=== PATIENT | female | born 1945 | race Caucasian/White ===

== ENCOUNTER 2017-07-26 07:32 | Emergency (ER) | payer MEDICARE, OTHER ==
[~2017-07-26] VITALS: Ht 157.5 cm; Wt 67.0 kg
[~2017-07-26 07:32] MED LIST: AMLO-145; ASPI81TA3; LISI20TA; METO-335; MEVA40
[2017-07-26 07:35] VITALS: Ht 157.5 cm; Wt 67.0 kg
[2017-07-26 08:20] VITALS: BP 138/78; PULSE 73; RESP 18; TEMP 98.1
--- NOTE | 2017-07-26 08:40 | ERD ---
ER Documentation Chief Complaint Chief Complaint Pt with painful urination since yesterday, today blood in urine. HPI 71-year-old female presents emergency department for dysuria and hematuria. Patient states she has had dysuria since yesterday and developed hematuria today. No vaginal bleeding or vaginal discharge. No passage of blood clots. No fevers or chills. No abdominal pain, vomiting, diarrhea or constipation. Patient states she has had 3 UTIs recently and states this feels exactly the same as her previous UTIs. ROS All systems reviewed and are negative except as per history of present illness. Medications Home Meds Active Scripts Cephalexin* (Keflex*) 500 Mg Capsule, 500 MG PO BID for 7 Days, CAP Prov:TIBURCIO PAYTON NP 07/26/17 Phenazopyridine Hcl* (Pyridium*) 100 Mg Tab, 100 MG PO TID for 2 Days, TAB Prov:TIBURCIO APYTON NP 07/26/17 Reported Medications Amlodipine Besylate* (Amlodipine Besylate*) 5 Mg Tablet 03/20/13 Lovastatin (Lovastatin) 40 Mg Tablet 03/20/13 Metoprolol Succinate* (Toprol XL*) 25 Mg Tab.sr.24h 03/20/13 Lisinopril* (Prinivil*) 20 Mg Tablet 03/20/13 Aspirin (Aspirin) 81 Mg Chew 03/20/13 Discontinued Scripts Nitrofurantoin Monohyd Macrocr (Macrobid) 100 Mg Capsr, 100 MG PO BID for 5 Days , CAP Prov:TIBURCIO PAYTON NP 07/26/17 Allergies Allergies: Coded Allergies: Penicillins (Verified Allergy, Unknown, 03/20/13) PMhx/Soc History of Surgery: Yes (ABDOMINAL SURGERY; LEFT KNEE REPLACEMENT;BLADDER SURGERY) Anesthesia Reaction: No Hx Neurological Disorder: No Hx Respiratory Disorders: No Hx Cardiac Disorders: Yes (HTN; HIGH CHOLESTEROL) Hx Psychiatric Problems: No Hx Miscellaneous Medical Probl: No Hx Alcohol Use: No Hx Substance Use: No Hx Tobacco Use: No Physical Exam Vitals Vital Signs Date Time Temp Pulse Resp B/P Pulse Ox O2 Delivery O2 Flow Rate FiO2 07/26/17 08:20 98.1 73 18 138/78 17 Room Air 07/26/17 07:35 98.1 84 18 189/91 98 Physical Exam Const: no acute distress, alert Head: Atraumatic Eyes: Normal Conjunctiva ENT: Normal External Ears, Nose and Mouth. Neck: Full range of motion..~ No meningismus. Resp: Clear to auscultation bilaterally. no wheezing, rhonchi or crackles Cardio: Regular rate and rhythm, no murmurs Abd: Soft, non tender, non distended. Normal bowel sounds Skin: No petechiae or rashes Back: No midline or flank tenderness. No CVA tenderness. Ext: No cyanosis, or edema Neur: Awake and alert Psych: Normal Mood and Affect Results 24 hrs Laboratory Tests Test 07/26/17 08:23 Urine Color DOMINGO Urine Clarity CLOUDY Urine pH 6.0 Urine Specific [place] 1.012 Urine Ketones NEGATIVEmg/dL Urine Nitrite NEGATIVEmg/dL Urine Bilirubin NEGATIVEmg/dL Urine Urobilinogen NEGATIVEmg/dL Urine Leukocyte Esterase 2+Dharmesh/ul Urine Microscopic RBC > 182/HPF Urine Microscopic WBC > 182/HPF Urine Bacteria FEW/HPF Urine Hemoglobin 2+mg/dL Urine Glucose NEGATIVEmg/dL Urine Total Protein 2+mg/dl Procedures/MDM MDM: 71 year old female presents to ER for dysuria and hematuria. Patient is afebrile. Blood pressure is 189/91 mm Hg upon arrival to ED. Patient states she took her lisinopril at home about 30 minutes prior to arrival to ED. Upon recheck, patient's blood pressure has reduced. UA shows Patient denies abdominal pain, vomiting or diarrhea. No constipation. No chest pain, shortness breath or difficulty breathing. She states her symptoms feel exactly the same as her previous UTI. UA shows 2+ leukocyte esterase, greater than 182 white blood cells and greater than 182 RBCs. Vital signs are stable. Patient likely has UTI. Low suspicion for nephrolithiasis or pyelonephritis. Patient is appropriate for outpatient management will be given prescription for Keflex and Pyridium. Instructed patient to follow-up with primary care provider in the next 2-3 days for reassessment and additional management. Return to ED for any high fever, chest pain, difficulty breathing, shortness breath, wheezing, vomiting, diarrhea, abdominal pain or any new or worsening symptoms. Patient verbalizes understanding. All questions answered at discharge. Disclaimer: Inadvertent spelling and grammatical errors are likely due to EHR/ dictation software use and do not reflect on the overall quality of patient care. Also, please note that the electronic time recorded on this note does not necessarily reflect the actual time of the patient encounter. Departure Diagnosis: Primary Impression: UTI (urinary tract infection) Urinary tract infection type: acute cystitis Hematuria presence: with hematuria Qualified Code: N30.01 - Acute cystitis with hematuria Condition: TIBURCIO Smith NP Jul 26, 2017 08:40
[2017-07-26 09:30] LABS: ADD UMIC YES; UR ASCORBIC ACID NEGATIVE (NEGATIVE); UR BACTERIA FEW /HPF (NONE SEEN); UR BILIRUBIN (Dip) NEGATIVE (NEGATIVE); UR BLOOD (Dip) 2+ mg/dL (NEGATIVE); UR CLARITY CLOUDY (CLEAR); UR COLOR AMBER (YELLOW); UR GLUCOSE (Dip) NEGATIVE (NEGATIVE); UR KETONES (Dip) NEGATIVE (NEGATIVE); UR LEUKOCYTE ESTERASE (Dip) 2+ Leu/ul (NEGATIVE); UR NITRITE (Dip) NEGATIVE (NEGATIVE); UR RBC > 182 /HPF (0-5); UR SPECIFIC GRAVITY (Dip) 1.012 (1.003-1.030); UR TOTAL PROTEIN (Dip) 2+ mg/dl (NEGATIVE); UR UROBILINOGEN (Dip) NEGATIVE (NEGATIVE)
[2017-07-26] MEDS ORDERED: PHEN-537 PO (09:39)
[2017-07-26] MEDS ORDERED: NITR-58 PO (09:39)
[2017-07-26] MEDS ORDERED: CEPH-443 PO (09:42)
== END 2017-07-26 10:29 | disposition home or self-care (01) ==
LOC: FTE 07:32
DX: N30.01 Acute cystitis with hematuria (principal); I10 Essential (primary) hypertension; Z79.82 Long term (current) use of aspirin; Z96.652 Presence of left artificial knee joint
CPT/HCPCS: 81001; 99283

== ENCOUNTER 2018-10-06 14:40 | Emergency (ER) | payer MEDICARE, OTHER ==
[~2018-10-06] VITALS: Ht 157.5 cm; Wt 68.5 kg
[~2018-10-06 14:40] MED LIST changes: +ACET325T33 PO; +ASPI-831; -ASPI81TA3; +BACL10TA PO; +CEPH-443 PO; +IBUP-1561 PO; +PHEN-537 PO
[2018-10-06 15:45] VITALS: BP 141/77; PULSE 78; RESP 19; Ht 157.5 cm; Wt 68.5 kg
--- NOTE | 2018-10-06 17:41 | ERD ---
ER Documentation Chief Complaint Chief Complaint RT WRIST PAIN GROUND LEVEL FALL. NO DEFORMITIES. HPI 72-year-old female, presents to the emergency department, complaining of right wrist and right hand pain after sustaining a mechanical ground-level fall that occurred approximately 6 hours prior to arrival. No head trauma. The pain is dull, constant, the patient has been using ice without improvement of the symptoms. The patient denies distal weakness, weakness, numbness or tingling . ROS All systems reviewed and are negative except as per history of present illness. Medications Home Meds Active Scripts Ibuprofen* (Motrin*) 400 Mg Tab, 400 MG PO Q8, #15 TAB Prov:AIME PATEL MD 10/06/18 Acetaminophen* (Tylenol*) 325 Mg Tablet, 2 TAB PO Q8 PRN for PAIN AND OR ELEVATED TEMP, #20 TAB Prov:AIME PATEL MD 10/06/18 Baclofen* (Baclofen*) 10 Mg Tablet, 10 MG PO QHS for SPASM for 7 Days, #7 TAB Prov:AIME PATEL MD 10/01/18 Ibuprofen* (Motrin*) 400 Mg Tab, 400 MG PO Q8, #15 TAB Prov:AIME PATEL MD 10/01/18 Acetaminophen* (Tylenol*) 325 Mg Tablet, 2 TAB PO Q8 PRN for PAIN AND OR ELEVATED TEMP, #20 TAB Prov:AIME PATEL MD 10/01/18 Cephalexin* (Keflex*) 500 Mg Capsule, 500 MG PO BID for 7 Days, CAP Prov:TIBURCIO PAYTON NP 07/26/17 Phenazopyridine Hcl* (Pyridium*) 100 Mg Tab, 100 MG PO TID for 2 Days, TAB Prov:TIBURCIO PAYTON NP 07/26/17 Reported Medications Amlodipine Besylate* (Amlodipine Besylate*) 5 Mg Tablet 03/20/13 Lovastatin (Lovastatin) 40 Mg Tablet 03/20/13 Metoprolol Succinate* (Toprol XL*) 25 Mg Tab.sr.24h 03/20/13 Lisinopril* (Prinivil*) 20 Mg Tablet 03/20/13 Aspirin (Aspirin) 81 Mg Chew 03/20/13 Allergies Allergies: Coded Allergies: Penicillins (Verified Allergy, Unknown, 03/20/13) PMhx/Soc History of Surgery: Yes (ABDOMINAL SURGERY; THIEN KNEE REPLACEMENT;BLADDER SURGERY) Anesthesia Reaction: No Hx Neurological Disorder: No Hx Respiratory Disorders: No Hx Cardiac Disorders: Yes (HTN; HIGH CHOLESTEROL) Hx Psychiatric Problems: No Hx Miscellaneous Medical Probl: No (DM) Hx Alcohol Use: No Hx Substance Use: No Hx Tobacco Use: No Smoking Status: Never smoker FmHx Family History: diabetes; No coronary disease Physical Exam Vitals Vital Signs Date Temp Pulse Resp B/P (MAP) Pulse Ox O2 O2 Flow FiO2 Time Delivery Rate 10/06/18 97.9 78 19 141/77 99 15:45 (98) Physical Exam Const: No acute distress Head: Atraumatic Eyes: Normal Conjunctiva ENT: Normal External Ears, Nose and Mouth. Neck: Full range of motion. No meningismus. Resp: Clear to auscultation bilaterally Cardio: Regular rate and rhythm, no murmurs Abd: Soft, non tender, non distended. Normal bowel sounds Skin: No petechiae or rashes Back: No midline or flank tenderness Ext: Right wrist: Normal inspection, mild tenderness to palpation, full passive range of motion, distal neurovascular exam intact. Neur: Awake and alert Psych: Normal Mood and Affect Results 24 hrs Current Medications Medications Dose Sig/Kayla Start Time Status Last (Trade) Ordered Route PRN Stop Time Admin Dose Reason Admin 650 mg ONCE ONCE 10/06/18 DC 10/06/18 Acetaminophen PO 18:00 17:46 (Tylenol 10/06/18 18:01 Tab) Ibuprofen 400 mg ONCE ONCE 10/06/18 DC 10/06/18 (Motrin) PO 18:00 17:45 10/06/18 18:01 DIAGNOSTIC IMAGING REPORT Patient: TARIQ DAWKINS : 1945 Age: 72 Sex: F MR #: [id number] DOS: 10/06/18 1736 Ordering MD: AIME PATEL MD Location: [facility] Room/Bed: PROCEDURE: Right wrist x-ray CLINICAL INDICATION: Pain after fall TECHNIQUE: 4 views of the wrist were obtained. COMPARISON: None FINDINGS: No acute fracture or dislocation. No significant arthropathy or erosive changes. Mild dorsal predominant soft tissue swelling. No foreign body or soft tissue gas. IMPRESSION: Soft tissue swelling without evidence of acute fracture. RPTAT:AAJJ Asher Lr Physician Date Time Electronically viewed and signed by Asher Lr Physician on 10/06/2018 18:17 RF/ CC: AIME PATEL MD [id number] Procedures/MDM Acute right wrist pain: no red flags. Differential diagnosis include but not limited to: Wrist contusion, tendon/ligament injury, arthritis; low suspicion for fracture, dislocation, septic arthritis. Neurovascular exam grossly intact. no clinical findings suggestive of acute infectious process, no acute deformity, no edema, no rashes. Pertinent Data: X-rays: No fracture or dislocation Physical examination and clinical presentation consistent most likely with acute right wrist sprain. During the ED course the patient received treatment with Tylenol and Motrin presenting overall improvement of the symptoms. Results and clinical impression discussed with the patient who agrees with management. The patient is stable to be treated outpatient and will be discharged home with recommendations for ice, rest, NSAIDs 3 times daily for 5 days and close monitoring. The patient was instructed to follow up with the primary care provider in the next 48h. If symptoms persist, worsen or new symptoms develop, then patient should return to the ED immediately. Instructions explained and given to patient with acknowledgment and demonstrated understanding. Disclaimer: Inadvertent spelling and grammatical errors are likely due to EHR/dictation software use and do not reflect on the overall quality of patient care. Also, please note that the electronic time recorded on this note does not necessarily reflect the actual time of the patient encounter. Departure Diagnosis: Primary Impression: Wrist injury Encounter type: initial encounter Laterality: right Qualified Codes: S69.91XA - Unspecified injury of right wrist, hand and finger(s), initial encounter Additional Impression: Fall from slip, trip, or stumble Condition: Stable Additional Instructions: Muchas lisa por [facility] para blanco servicio. Esperamos que en blanco visita a la fernando de emergencia blanco problema medico haya sido solucionado y que se sienta mucho mejor. Para estar seguros que blanco mejoria sigue en proceso, le pedimos el favor de hacer baljit teetee de seguimiento medico con blanco doctor primario en los proximos 2-4 dunn. Lleve con usted estos documentos y las medicinas recetadas. Si johnathan sintomas empeoran, NO SE ESPERE, por favor regrese a fernando de emergencia INMEDIATAMENTE. En radha que usted no tenga un mdico de atencin primaria: Llame al mdico o clnica comunitaria de referencia que aparece abajo alexander las horas de consultorio para hacer baljit teetee para que le vean. CLINICAS: [facility] [phone] [facility] [phone] [facility] [phone] [facility] [phone] [place] [id number] [phone] [facility] [phone] AIME MUSA MD Oct 06, 2018 17:40
[2018-10-06] MEDS ORDERED: ACETAMINOPHEN 325 MG TAB PO ONE (18:00)
[2018-10-06] MEDS ORDERED: IBUPROFEN 200 MG TAB PO ONE (18:00)
[2018-10-06] MEDS ORDERED: ACET325T33 PO (18:59)
[2018-10-06] MEDS ORDERED: IBUP-1561 PO (18:59)
== END 2018-10-06 20:00 | disposition home or self-care (01) ==
LOC: FTE 14:40
DX: S69.91XA Unspecified injury of right wrist, hand and finger(s), initial encounter (principal); E11.9 Type 2 diabetes mellitus without complications; I10 Essential (primary) hypertension; W01.0XXA Fall on same level from slipping, tripping and stumbling without subsequent striking against object, initial encounter; Y92.9 Unspecified place or not applicable; Z79.82 Long term (current) use of aspirin; Z96.653 Presence of artificial knee joint, bilateral

== ENCOUNTER 2019-03-22 06:17 | Emergency (ER) | payer MEDICARE, OTHER ==
[~2019-03-22] VITALS: Ht 157.5 cm; Wt 70.0 kg
[2019-03-22 06:23] VITALS: BP 119/57; PULSE 67; RESP 18; Ht 157.5 cm; Wt 70.0 kg
[2019-03-22] MEDS ORDERED: KETOROLAC 60 MG INJ IM STA (06:37)
[2019-03-22] MEDS ORDERED: NAPR-985 PO (06:40)
[2019-03-22] MEDS ORDERED: MED4DP PO (06:40)
[2019-03-22] MEDS ORDERED: TRAM50TA2 PO (06:40)
[2019-03-22] MEDS ORDERED: DEXAMETHASONE 10 MG/ML 1 ML INJ IM ONE (07:00)
--- NOTE | 2019-03-22 07:11 | ERD ---
ER Documentation Chief Complaint Chief Complaint BACK PAIN X WEEK HPI 83-year-old female presenting with back pain x1 week. Patient states is on the left side extending down her buttocks. Is worse with movement. She took ibuprofen with alleviation of symptoms however pain returns when medication wears off. Denies any changes in urination or bowel movement. Denies any numbness or tingling down her legs. Denies abdominal pain. Denies pelvic pain. Denies flank pain. Medical history is hypertension and prediabetes. Allergy to penicillin. Surgical history knee replacement. Social history denies ROS All systems reviewed and are negative except as per history of present illness. Medications Home Meds Active Scripts Tramadol HCl (Tramadol HCl) 50 Mg Tablet, 50 MG PO Q4 PRN for PAIN, #20 TAB Prov:DEDE DOUGLAS PA-C 03/22/19 Naproxen* (Naprosyn*) 500 Mg Tablet, 500 MG PO BID PRN for PAIN AND/OR INFLAMMATION, #30 TAB Prov:DEDE DUOGLAS PA-C 03/22/19 Methylprednisolone* (Medrol* DOSE PACK) 4 Mg/Dose-Pack Tab.ds.pk, 4 MG PO . DIRECTED, #1 PACKET Prov:DEDE DOUGLAS PA-C 03/22/19 Ibuprofen* (Motrin*) 400 Mg Tab, 400 MG PO Q8, #15 TAB Prov:AIME PATEL MD 10/06/18 Acetaminophen* (Tylenol*) 325 Mg Tablet, 2 TAB PO Q8 PRN for PAIN AND OR ELEVATED TEMP, #20 TAB Prov:AIME PATEL MD 10/06/18 Baclofen* (Baclofen*) 10 Mg Tablet, 10 MG PO QHS for SPASM for 7 Days, #7 TAB Prov:AIME PATEL MD 10/01/18 Ibuprofen* (Motrin*) 400 Mg Tab, 400 MG PO Q8, #15 TAB Prov:AIME PATEL MD 10/01/18 Acetaminophen* (Tylenol*) 325 Mg Tablet, 2 TAB PO Q8 PRN for PAIN AND OR ELEVATED TEMP, #20 TAB Prov:AIME PATEL MD 10/01/18 Cephalexin* (Keflex*) 500 Mg Capsule, 500 MG PO BID for 7 Days, CAP Prov:TIBURCIO PAYTON MACHINE TECHNICIAN 07/26/17 Phenazopyridine Hcl* (Pyridium*) 100 Mg Tab, 100 MG PO TID for 2 Days, TAB Prov:TIBURCIO PAYTON MACHINE TECHNICIAN 07/26/17 Reported Medications Amlodipine Besylate* (Amlodipine Besylate*) 5 Mg Tablet 03/20/13 Lovastatin (Lovastatin) 40 Mg Tablet 03/20/13 Metoprolol Succinate* (Toprol XL*) 25 Mg Tab.sr.24h 03/20/13 Lisinopril* (Prinivil*) 20 Mg Tablet 03/20/13 Aspirin (Aspirin) 81 Mg Chew 03/20/13 Allergies Allergies: Coded Allergies: Penicillins (Verified Allergy, Unknown, 03/20/13) PMhx/Soc History of Surgery: Yes (ABDOMINAL SURGERY; THIEN KNEE REPLACEMENT;BLADDER SURGERY) Anesthesia Reaction: No Hx Neurological Disorder: No Hx Respiratory Disorders: No Hx Cardiac Disorders: Yes (HTN; HIGH CHOLESTEROL) Hx Psychiatric Problems: No Hx Miscellaneous Medical Probl: No (DM) Hx Alcohol Use: No Hx Substance Use: No Hx Tobacco Use: No Smoking Status: Never smoker FmHx Family History: No diabetes, No coronary disease, No other Physical Exam Vitals Vital Signs Date Temp Pulse Resp B/P (MAP) Pulse Ox O2 O2 Flow FiO2 Time Delivery Rate 03/22/19 98.1 67 18 119/57 99 06:23 (77) Physical Exam GENERAL: The patient is well-appearing, well-nourished, in no acute distress CHEST: Clear to auscultation bilaterally. There are no rales, wheezes or rhonchi. HEART: Regular rate and rhythm. No murmurs, clicks, rubs or gallops. ABDOMEN:Soft, nontender and nondistended. Good bowel sounds. No rebound or guarding. No gross peritonitis. No gross organomegaly or masses. N BACK: No midline or flank tenderness. Tender to palpation down left paraspinal muscles. EXTREMITIES: Equal pulses bilaterally. There is no peripheral clubbing, cyanosis or edema. No focal swelling or erythema. Full range of motion. NEUROLOGIC: Alert and oriented. Cranial nerves II through XII intact. Motor strength in all 4 extremities with 5 out of 5 strength. Sensation grossly intact. Normal speech and gait. SKIN: There is no apparent rash or petechiae. The skin is warm and dry. H Results 24 hrs Current Medications Medications Dose Sig/Kayla Start Time Status Last (Trade) Ordered Route PRN Stop Time Admin Dose Reason Admin Ketorolac 60 mg ONCE STAT 03/22/19 DC 03/22/19 Tromethamine IM 06:37 03/22/19 06:47 (Toradol) 06:39 10 mg ONCE ONCE 03/22/19 DC 03/22/19 Dexamethasone IM 07:00 03/22/19 06:47 (Decadron) 07:01 Procedures/MDM ER course: Toradol and Decadron given in the ED. MDM: 73-year-old female presenting with back pain. I have low suspicion for discitis, epidural abscess or cauda equina. I have low suspicion for acute fracture dislocation. I have low suspicion for acute abdominal emergency radiating to the back. I do not feel that imaging or blood work is indicated. Patient be discharged with supportive medications and told to follow-up with primary care within 1 to 2 days for close evaluation. Patient is told symptoms change or worsen to return immediately to the ER. All questions answered at discharge Departure Diagnosis: Primary Impression: Back pain Condition: Stable Patient Instructions: Back Pain W/ Sciatica Referrals: CEFERINO GAVIRIA MD (PCP) Additional Instructions: FOLLOW UP WITH YOUR PRIMARY CARE PHYSICIAN TOMORROW.Return to this facility if you are not improving as expected. DEDE DOUGLAS PA-C Mar 22, 2019 07:11
== END 2019-03-22 06:36 | disposition home or self-care (01) ==
LOC: FTE 06:17
DX: M54.9 Dorsalgia, unspecified (principal); I10 Essential (primary) hypertension; E11.9 Type 2 diabetes mellitus without complications; Z79.82 Long term (current) use of aspirin; Z96.653 Presence of artificial knee joint, bilateral
CPT/HCPCS: 99284; J1100; J1885